=== PATIENT | male | born 1995 | race Caucasian/White ===

== ENCOUNTER → 2024-04-13 | Outpatient (BNVA) | payer OTHER, SELFPAY | END | disposition home or self-care (01) | PROVIDERS: Visit Provider Urology | DX: Z30.2 Encounter for sterilization (principal); N40.0 Benign prostatic hyperplasia without lower urinary tract symptoms; F17.210 Nicotine dependence, cigarettes, uncomplicated | CPT/HCPCS: 81003; 99202; G0463 ==

== ENCOUNTER 2024-04-28 10:00 | Day surgery (SDC) | payer OTHER, SELFPAY ==
[2024-04-28] VITALS (8 sets, daily range): BP systolic 136–161; BP diastolic 82–96; PULSE 74–89; RESP 14–20; TEMP 36.2–36.6; O2SAT 94–97; BMI 28.0
--- NOTE | 2024-04-28 12:15 | SUR.PHASEI ---
pt received from OR in recovery bay 2. pt awake and alert, breathing unlabored on room air. v/s stable. pt dressing to scrotal area cdi. report received from Dr. Porter and Branden JONES.
--- NOTE | 2024-04-28 12:44 | PD.SUROPNT ---
Date of Procedure 04/28/24 Pre Op Diagnosis Elective sterilization Post Op Diagnosis Same Procedure Bilateral vasectomy Findings Bilateral vas no pathology Procedure Description Indication for procedure this is a 28-year-old male seen in urology office he is not he has a child desired bilateral vasectomy procedure and complications were discussed with the patient in great detail informed consent is obtained he understood very well there is no warranty for permanent sterilization Patient was brought to the operating room in a satisfactory condition after appropriate premedication was put on the operating table in a supine position he was appropriately identified by surgeon and operating room staff site scope and indication of the procedure were reconfirmed with the patient . Procedure patient was brought to the operating room in a satisfactory condition after appropriate premedication was put on the operating table in a supine position general anesthesia was given uneventfully parts were prepped and draped in a usual sterile fashion. Next the right vas deferens was palpated between 2 fingers and a thumb 2% lidocaine with quarter percent Marcaine was instilled appropriately vertical skin incision was made proper hemostasis was secured. Next the vas deferens was brought into the incision it was from its various fascial coverings between 2 silver clips centimeter of the vas deferens was excised. The lumen of the vas deferens was diathermized with coagulation diathermy distal end of the vas deferens was buried between various fascial layers. Skin was approximated with 3-0 chromic. Similar procedure was repeated on the opposite side. Next this sterile dressings were applied. Pressure bandage was given Patient having tolerated the procedure well and was sent to recovery room in a satisfactory condition to be discharged home with full postoperative instructions were verbally as well as in writing to be followed in urology office in 6 weeks' time. Anesthesia GETA Pathology / specimen None Estimated Blood Loss 0.2 Condition Stable Disposition PACU Surgeon Conor Cyr MD Surgical Staff Operation Date: 04/28/24 12:30 Case Staff Anesthesiologist: Juventino Porter
--- NOTE | 2024-04-28 12:58 | SUR.PHASEII ---
pt able to tolerate oral fluids without difficulty swallowing or nausea/vomiting.
[2024-04-28] MEDS: ACETAMINOPHEN 325 MG TABLET 650 MG PO (13:21)
--- NOTE | 2024-04-28 13:40 | SUR.PHASEII ---
pt awake and alert, breathing unlabored on room air. v/s stable. pt dressing to scrotal area cdi. pt able to ambulate to wheelchair with steady gait. d/c instructions given with aunt at car and pt in room. pt d/c via wheelchair with all belongings.
== END 2024-04-28 13:40 | disposition home or self-care (01) ==
PROVIDERS: Referring Provider Urology; Visit Provider Urology
PROC: (CPT 55250; principal; 2024-04-28 12:15)
DX: Z30.2 Encounter for sterilization (principal)
CPT/HCPCS: 55250; A4217; A4649; J1100; J2704; J2765; J3010; J3490; A9270; J0665

== ENCOUNTER → 2024-08-10 | Outpatient (BNVA) | payer OTHER, SELFPAY | END | disposition home or self-care (01) | PROVIDERS: PCP Urology; Referring Provider Urology; Visit Provider Urology | DX: N40.0 Benign prostatic hyperplasia without lower urinary tract symptoms (principal); N52.9 Male erectile dysfunction, unspecified; Z98.52 Vasectomy status; F43.10 Post-traumatic stress disorder, unspecified; F17.210 Nicotine dependence, cigarettes, uncomplicated | CPT/HCPCS: 81003; 99212; G0463 ==

== ENCOUNTER → 2024-08-12 | Outpatient (CLI) | payer OTHER, SELFPAY | END | disposition home or self-care (01) | PROVIDERS: Referring Provider Urology; Visit Provider Urology | DX: Z30.8 Encounter for other contraceptive management (principal) ==